=== PATIENT | male | born 1975 | race Caucasian/White ===

== ENCOUNTER 2018-06-10 10:01 | Inpatient (IN) | payer OTHER ==
[2018-06-10 10:22] VITALS: BMI 22.8
[2018-06-10] MEDS ORDERED: MENTHOL/PHENOL 1 EACH UD MM PRN (13:20)
[2018-06-10] MEDS ORDERED: BISMUTH SUBSALICYLATE 524 MG/30 ML UD PO PRN (13:20)
[2018-06-10] MEDS ORDERED: hydrOXYzine PAMOATE 25 MG CAPSULE (FP) PO PRN (13:20)
[2018-06-10] MEDS ORDERED: ACETAMINOPHEN 325 MG TABLET (FP) PO PRN (13:20)
[2018-06-10] MEDS ORDERED: MAGNESIUM CITRATE 300 ML BOTTLE PO PRN (13:20)
[2018-06-10] MEDS ORDERED: DICYCLOMINE HCL 10 MG CAPSULE PO PRN (13:20)
[2018-06-10] MEDS ORDERED: MAGNESIUM HYDROX 2400MG/30ML ORAL SUSPENSION 30 ML CUP PO PRN (13:20)
[2018-06-10] MEDS ORDERED: IBUPROFEN 400 MG TABLET (FP) PO PRN (13:20)
[2018-06-10] MEDS ORDERED: MAG HYDROX/AL HYDROX/SIMETH 30 ML UNIT-DOSE CUP PO PRN (13:20)
[2018-06-10] MEDS ORDERED: chlordiazePOXIDE HCL 25 MG CAPSULE PO PRN (13:22)
[2018-06-10] MEDS ORDERED: METHADONE HCL 10 MG TABLET PO ONE (13:23)
--- NOTE | 2018-06-10 13:25 | HP ---
COWS - Scale Resting Pulse: 0= AL 80 or Below Sweatin= Chills/Flushing Restless Observation: 1= Difficult to Sit Still Pupil Size: 2= Moderately Dilated Bone or Joint Aches: 2= Severe Diffuse Aches Runny Nose/ Eye Tearin= Nasal Congestion GI Upset > 30mins: 2= Nausea/Diarrhea Tremor Observation: 2= Slight Tremor Visible Yawning Observation: 0= None Anxiety or Irritability: 2=Irritable/Anxious Goose Flesh Skin: 0=Smooth Skin COWS Score: 13 CIWA Score Nausea/Vomitin Muscle Tremors: 2 Anxiety: 3 Agitation: 4-Moderately Restless Paroxysmal Sweats: 2 Orientation: 0-Oriented Tacttile Disturbances: 0-None Auditory Disturbances: 0-None Visual Disturbances: 0-None Headache: 2-Mild CIWA-Ar Total Score: 15 - Admission Criteria [facility]ASAS Guidelines: Admission for Medically Managed Detox: Requires at least one of the followin. CIWA greater than 12 2. Seizures within the past 24 hours 3. Delirium tremens within the past 24 hours 4. Hallucinations within the past 24 hours 5. Acute intervention needed for co occurring medical disorder 6. Acute intervention needed for co occurring psychiatric disorder 7. Severe withdrawal that cannot be handled at a lower level of care (continued vomiting, continued diarrhea, abnormal vital signs) requiring intravenous medication and/or fluids 8. Admission ROS [facility] Chief Complaint: PATIENT PRESENTS WT ETOH WITHDRAWAL SX AND COCAINE DEPENDENCE. Allergies/Adverse Reactions: Allergies Allergy/AdvReac Type Severity Reaction Status Date / Time fish derived Allergy Severe Swelling Verified 06/10/18 12:14 shellfish derived Allergy Severe Swelling Verified 06/10/18 12:14 No Known Drug Allergies Allergy Verified 06/10/18 12:14 Seafood Allergy Severe Swelling Uncoded 06/10/18 12:14 History of Present Illness: PATIENT IS KNOWN TO FACILITY DUE TO PREVIOUS ADMISSION WITH LAST ADMISSION BEING IN 2013. PATIENT STATES HAVING HX OF HEROIN AND COCAINE USE BUT WAS SOBER X 1 YEARS. PATIENT REPORTS RELAPSING ONE MONTH AGO. CURRENTLY IN MMTP AT [facility] AND RN DOSE VERIFICATION COMPLETED. JESSICA REGAN LPN REPORTS DAILY DOSE 140MG. LAST DOSED AT CLINIC 06/08/18 BUT PATIENT WAS GIVEN DAILY DOSE FOR SUNDAY. PATIENT STATES HE TOOK DOSE 06/09/18 BUT NOT TODAY. PATIENT PRESENTS TODAY FOR ETOH WITHDRAWAL SX. PATIENT DRINKS 1/2 PINT OF LIQUOR DAILY, LAST DRINK THIS MORNING. PATIENT ALSO INJECTS COCAINE BUT DENIES USING HEROIN/ BZO. UDS + MTD, BZO, NILA, OPI AND THC. PATIENT STATES HE INJECTS 100 DOLLARS OF COCAINE DAILY WITH LAST USE LAST NIGHT. +MARIJUANA USE. DENIES SEIZURES, OVERDOSE, DTS AND BLACKOUTS. PMH INCLUDES HEPATITIS C (UNTREATED) AND BIPOLAR DISORDER. DENIES SI/HI. Exam Limitations: No Limitations - Ebola screening Have you traveled outside of the country in the last 21 days: No Have you had contact with anyone from an Ebola affected area: No Have you been sick,other than usual withdrawal symptoms: No Do you have a fever: No Patient History - Patient Medical History Hx Anemia: No Hx Asthma: No Hx Chronic Obstructive Pulmonary Disease (COPD): No Hx Cancer: No Hx Cardiac Disorders: No Hx Congestive Heart Failure: No Hx Hypertension: No Hx Hypercholesterolemia: No Hx Pacemaker: No HX Cerebrovascular Accident: No Hx Seizures: No Hx Dementia: No Hx Diabetes: No Hx Gastrointestinal Disorders: No Hx Liver Disease: No Hx Genitourinary Disorders: No Hx Sexually Transmitted Disorders: No Hx Renal Disease (ESRD): No Hx Thyroid Disease: No Hx Human Immunodeficiency Virus (HIV): No Hx Hepatitis C: Yes (NOT TREATED) Hx Depression: Yes Hx Suicide Attempt: No Hx Bipolar Disorder: Yes Hx Schizophrenia: No - Patient Surgical History Past Surgical History: No - PPD History Previous Implant?: Yes Documented Results: Negative w/proof Implanted On Prior R Admission?: Yes Date: 11/04/13 PPD to be Administered?: Yes - Reproductive History Patient : No - Smoking Cessation Smoking history: Current every day smoker Have you smoked in the past 12 months: Yes Aproximately how many cigarettes per day: 20 Hx Chewing Tobacco Use: No Initiated information on smoking cessation: Yes 'Breaking Loose' booklet given: 06/10/18 - Substance & Tx. History Hx Alcohol Use: Yes Hx Substance Use: Yes Substance Use Type: Alcohol, Cocaine, Marijuana Hx Substance Use Treatment: Yes - Substances Abused Alcohol Route: Oral Frequency: Daily Amount used: 1/2 pint voka 10 cans of 12oz beers Age of first use: 16 Date of Last Use: 06/10/18 Cocaine Route: Injection Frequency: Daily Amount used: $200 Age of first use: 19 Date of Last Use: 06/10/18 Family Disease History - Family Disease History Family History: Denies Admission Physical Exam [facility] - Vital Signs Vital Signs: Vital Signs - 24 hr 06/10/18 10:14 Temperature 99.3 F Pulse Rate 86 Respiratory 18 Rate Blood Pressure 126/71 - Physical General Appearance: Yes: Appropriately Dressed, Alcohol on Breath, Thin, Irritable, Sweating, Anxious HEENTM: Yes: EOMI, Hearing grossly Normal, Normocephalic, Normal Voice, BLAZE, Pharynx Normal, Nasal Congestion Respiratory: Yes: Chest Non-Tender, Lungs Clear, Normal Breath Sounds, No Respiratory Distress, No Accessory Muscle Use Neck: Yes: No masses,lesions,Nodules, Supple, Trachea in good position Breast: Yes: Breast Exam Deferred Cardiology: Yes: Regular Rhythm, Regular Rate, S1, S2 Abdominal: Yes: Normal Bowel Sounds, Non Tender, Flat Genitourinary: Yes: Within Normal Limits Back: Yes: Normal Inspection, Muscle Spasm Musculoskeletal: Yes: Back pain, Muscle Pain Extremities: Yes: Normal Range of Motion, Non-Tender, Tremors Neurological: Yes: core maker helper II-XII NML intact, Fully Oriented, Alert, Motor Strength 5/5, Normal Mood/Affect, Normal Response Integumentary: Yes: Normal Color, Warm, Moist, Track [place] Lymphatic: Yes: Within Normal Limits - Diagnostic (1) Methadone maintenance therapy patient Current Visit: Yes Status: Chronic (2) Alcohol dependence with uncomplicated withdrawal Current Visit: Yes Status: Acute (3) Cannabis dependence Current Visit: No Status: Chronic (4) Bipolar 1 disorder Current Visit: No Status: Suspected (5) Cocaine dependence Current Visit: No Status: Chronic Qualifiers: Substance use status: uncomplicated Qualified Code(s): F14.20 - Cocaine dependence, uncomplicated Cleared for Admission [facility] - Detox or Rehab [facility] Level of Care: Medically Managed Detox Regimen/Protocol: Librium [facility] Breath Alcohol Content Breath Alcohol Content: 0.006 Urine Drug Screen - Results Drug Screen Negative: No Urine Drug Screen Results: THC-Marijuana, NILA-Cocaine, OPI-Opiates, BZO- Benzodiazepines, MTD-Methadone Inpatient Rehab Admission - Rehab Decision to Admit Inpatient rehab admission?: No
[2018-06-10] MEDS ORDERED: METHADONE HCL 10 MG TABLET ONE (13:40)
[2018-06-10] MEDS ORDERED: METHADONE HCL 40 MG DISPERSABLE TABLET ONE (13:40)
[2018-06-10] MEDS: METHADONE 120 MG, METHADONE 20 MG PO SCH (13:42)
[2018-06-10] MEDS: NICOTINE POLACRILEX 2 MG GUM BUC PRN (16:27)
[2018-06-10] MEDS: chlordiazePOXIDE HCL 25 MG CAPSULE PO SCH ×2 (17:33→22:02)
[2018-06-10] MEDS: MELATONIN 5 MG TABLETS PO PRN (22:03)
[2018-06-10] MEDS: THIAMINE HCL 100 MG TABLET (FP) PO SCH (22:03)
[2018-06-11] MEDS ORDERED: METHADONE HCL 40 MG DISPERSABLE TABLET ONE (04:10)
[2018-06-11] MEDS ORDERED: METHADONE HCL 10 MG TABLET ONE (04:10)
[2018-06-11 05:12] LABS: PH,URINE 5.5 (5.0-8.0); URINE APPEARANCE CLEAR; URINE BILIRUBIN NEGATIVE (NEGATIVE); URINE COLOR DK YELLOW; URINE GLUCOSE (UA) NEGATIVE (NEGATIVE); URINE KETONE TRACE (NEGATIVE); URINE LEUK ESTERASE NEGATIVE (NEGATIVE); URINE NITRITE NEGATIVE (NEGATIVE); URINE PROTEIN NEGATIVE (NEGATIVE)
[2018-06-11] MEDS: chlordiazePOXIDE HCL 25 MG CAPSULE PO SCH ×4 (05:40→22:07)
[2018-06-11] MEDS: METHADONE 120 MG, METHADONE 20 MG PO SCH (05:40)
[2018-06-11] MEDS ORDERED: METHADONE HCL 10 MG TABLET PO SCH (06:00)
[2018-06-11] MEDS: NICOTINE POLACRILEX 2 MG GUM BUC PRN ×2 (07:55→22:11)
--- NOTE | 2018-06-11 08:58 | CONSULT ---
[facility] Psychiatric Consult - Data Date of interview: 06/11/18 Admission source: [facility] Identifying data: Patient is a 42 year old single male, father of five, self employed ([employer]), but is currently homeless. This is one of multiple admissions for patient. Patient admitted to for alcohol and cocaine dependence. Substance Abuse History: Smoking Cessation. Smoking history: Current every day smoker. Have you smoked in the past 12 months: Yes. Aproximately how many cigarettes per day: 20. Hx Chewing Tobacco Use: No. Initiated information on smoking cessation: Yes. 'Breaking Loose' booklet given: 06/10/18. - Substance & Tx. History. Hx Alcohol Use: Yes. Hx Substance Use: Yes. Substance Use Type : Alcohol, Cocaine, Marijuana. Hx Substance Use Treatment: Yes. - Substances Abused. Alcohol. Route: Oral. Frequency: Daily. Amount used: 1/2 pint voka 10 cans of 12oz beers. Age of first use: 16. Date of Last Use: 06/10/18. Cocaine. Route: Injection. Frequency: Daily. Amount used: $200. Age of first use: 19. Date of Last Use: 06/10/18 Medical History: Hep C Psychiatric History: Patient reports h/o five psychiatric hospitalizations most recently two months ago at [facility] for suicidal ideation. He was discharged on depakote 500mg BID + seroquel 50mg BID. Self reports diagnosis of bipolar disorder. He is also known to [facility], [facility], and hospitals in [place]. Mr. Brewster reports h/o one suicide attempt by hanging self but states his child's mother cut the rope. He is currently provided psychiatric care and [facility] ([facility]. Reddy and is prescribed seroquel 50mg BID + Depakote 500mg BID. Mr. Brewster reports history of mood instability when off his medications. He last accepted psychtropic medications four days ago. At present, patient reports feeling fine. He denies thoughts or urges to hurt self or others. No manic or depressive symptoms noted. Physical/Sexual Abuse/Trauma History: denies. Mental Status Exam - Mental Status Exam Alert and Oriented to: Time, Place, Person Cognitive Function: Good Patient Appearance: Well Groomed Mood: Euthymic Affect: Mood Congruent Patient Behavior: Appropriate, Cooperative Speech Pattern: Appropriate Voice Loudness: Normal Thought Process: Intact, Goal Oriented Thought Disorder: Not Present Hallucinations: Denies Suicidal Ideation: Denies Homicidal Ideation: Denies Insight/Judgement: Poor Sleep: Poorly Appetite: Fair Muscle strength/Tone: Normal Gait/Station: Normal Psychiatric Findings - Problem List ([place] 1, 2,3) (1) Alcohol dependence with uncomplicated withdrawal Status: Acute (2) Methadone maintenance therapy patient Status: Chronic (3) Cannabis dependence Status: Chronic (4) Cocaine dependence Status: Chronic Qualifiers: Substance use status: uncomplicated Qualified Code(s): F14.20 - Cocaine dependence, uncomplicated (5) Bipolar disorder Status: Chronic - Initial Treatment Plan Initial Treatment Plan: Psychoeducation provided. Detoxification in progress. Will order Seroquel 50mg BID + Depakote 500mg BID. Valproic acid level ordered by ALIZA Darby. Benefits and side effects discussed. Verbal consent given.
--- NOTE | 2018-06-11 09:30 | EKG ---
Test Reason : Blood Pressure : / mmHG Vent. Rate : 080 BPM Atrial Rate : 080 BPM P-R Int : 134 ms QRS Dur : 104 ms QT Int : 396 ms P-R-T Axes : 063 072 068 degrees QTc Int : 456 ms NORMAL SINUS RHYTHM INCOMPLETE RIGHT BUNDLE BRANCH BLOCK BORDERLINE ECG NO PREVIOUS ECGS AVAILABLE Confirmed by WAN ALCANTAR, JAIME ([id number]) on 06/11/2018 9:29:36 AM Referred By: Confirmed By:JAIME BLAS MD
[2018-06-11] MEDS ORDERED: DIVALPROEX NA *ER* EXTEND REL 500 MG TABLET.SA (FP) PO SCH (10:00)
[2018-06-11] MEDS: DIVALPROEX SODIUM 500 MG TABLET E.C. PO SCH ×2 (10:19→22:08)
[2018-06-11] MEDS: NICOTINE 21 MG/24 HOURS TOPICAL PATCH TD SCH (10:19)
[2018-06-11] MEDS: PRENATAL VITAMINS W/ FOLIC ACID TABLET (FP) PO SCH (10:19)
[2018-06-11] MEDS: QUEtiapine FUMARATE 50 MG TABLET PO SCH ×2 (10:20→22:08)
[2018-06-11 12:16] LABS: HEMATOCRIT 36.3 % (35.4-49); HEMOGLOBIN 12.5 GM/dL (11.7-16.9); MCH 30.3 pg (25.7-33.7); MCHC 34.3 g/dl (32.0-35.9); MEAN CELL VOLUME 88.3 fl (80-96); MEAN PLT VOLUME 8.1 fl (7.5-11.1); PLATELET COUNT 314 K/MM3 (134-434); RBC 4.12 M/mm3 (4.00-5.60); RDW 14.6 % (11.9-15.9)
[2018-06-11 12:52] LABS: ALBUMIN 4.1 g/dl (3.4-5.0); ALK PHOS 115 U/L (45-117); ANION GAP 10 MMOL/L (8-16); BILIRUBIN,TOTAL 0.2 mg/dL (0.2-1); BLOOD UREA NITROGEN 18 mg/dL (7-18); CALCIUM 8.8 mg/dL (8.5-10.1); CHLORIDE 106 mmol/L (98-107); CO2 24 mmol/L (21-32); GLUCOSE,RANDOM 109 mg/dL (74-106); POTASSIUM 4.4 mmol/L (3.5-5.1); SGOT/AST 24 U/L (15-37); SGPT/ALT 130 U/L (13-61); SODIUM 141 mmol/L (136-145)
--- NOTE | 2018-06-11 13:52 | PN ---
[facility] CIWA - CIWA Score Nausea/Vomitin-Mild Nausea/No Vomiting Muscle Tremors: 3 Anxiety: 2 Agitation: 2 Paroxysmal Sweats: 1-Minimal Palms Moist Orientation: 1-Uncertain about Date Tacttile Disturbances: 0-None Auditory Disturbances: 0-None Visual Disturbances: 0-None Headache: 1-Very Mild CIWA-Ar Total Score: 11 [facility] Progress Note (SOAP) Subjective: doing ok today had methadone 140 mg social with peers in day room Objective: 06/11/18 13:56 Vital Signs Temperature 97.7 F 06/11/18 13:23 Pulse Rate 74 06/11/18 13:23 Respiratory Rate 18 06/11/18 13:23 Blood Pressure 102/57 L 06/11/18 13:23 O2 Sat by Pulse Oximetry (%) Laboratory Last Values WBC 9.0 K/mm3 (4.0-10.0) 06/11/18 06:00 RBC 4.12 M/mm3 (4.00-5.60) 06/11/18 06:00 Hgb 12.5 GM/dL (11.7-16.9) 06/11/18 06:00 Hct 36.3 % (35.4-49) 06/11/18 06:00 MCV 88.3 fl (80-96) 06/11/18 06:00 MCH 30.3 pg (25.7-33.7) 06/11/18 06:00 MCHC 34.3 g/dl (32.0-35.9) 06/11/18 06:00 RDW 14.6 % (11.9-15.9) 06/11/18 06:00 Plt Count 314 K/MM3 (134-434) 06/11/18 06:00 MPV 8.1 fl (7.5-11.1) D 06/11/18 06:00 Sodium 141 mmol/L (136-145) 06/11/18 06:00 Potassium 4.4 mmol/L (3.5-5.1) 06/11/18 06:00 Chloride 106 mmol/L (98-107) 06/11/18 06:00 Carbon Dioxide 24 mmol/L (21-32) 06/11/18 06:00 Anion Gap 10 MMOL/L (8-16) 06/11/18 06:00 BUN 18 mg/dL (7-18) 06/11/18 06:00 Creatinine 1.0 mg/dL (0.55-1.3) 06/11/18 06:00 Creat Clearance w eGFR 82.76 (>60) 06/11/18 06:00 Random Glucose 109 mg/dL (74-106) H 06/11/18 06:00 Calcium 8.8 mg/dL (8.5-10.1) 06/11/18 06:00 Total Bilirubin 0.2 mg/dL (0.2-1) 06/11/18 06:00 AST 24 U/L (15-37) 06/11/18 06:00 ALT 130 U/L (13-61) H 06/11/18 06:00 Alkaline Phosphatase 115 U/L (45-117) 06/11/18 06:00 Total Protein 8.0 g/dl (6.4-8.2) 06/11/18 06:00 Albumin 4.1 g/dl (3.4-5.0) 06/11/18 06:00 Urine Color Dk yellow 06/11/18 00:05 Urine Appearance Clear 06/11/18 00:05 Urine pH 5.5 (5.0-8.0) 06/11/18 00:05 Ur Specific [place] 1.029 (1.010-1.035) 06/11/18 00:05 Urine Protein Negative (NEGATIVE) 06/11/18 00:05 Urine Glucose (UA) Negative (NEGATIVE) 06/11/18 00:05 Urine Ketones Trace (NEGATIVE) H 06/11/18 00:05 Urine Blood Negative (NEGATIVE) 06/11/18 00:05 Urine Nitrite Negative (NEGATIVE) 06/11/18 00:05 Urine Bilirubin Negative (NEGATIVE) 06/11/18 00:05 Urine Urobilinogen 1.0 mg/dL (0.2-1.0) 06/11/18 00:05 Ur Leukocyte Esterase Negative (NEGATIVE) 06/11/18 00:05 Valproic Acid 3.1 ug/ml (50-100) L 06/11/18 06:00 RPR Titer Nonreactive (NONREACTIVE) 06/11/18 06:00 HIV 1&2 Antibody Screen Negative 06/11/18 06:00 HIV P24 Antigen Negative 06/11/18 06:00 lab noted Assessment: 06/11/18 13:57 withdrawal sx Plan: continue detox
[2018-06-11] MEDS: THIAMINE HCL 100 MG TABLET (FP) PO SCH (22:08)
[2018-06-11] MEDS: MELATONIN 5 MG TABLETS PO PRN (22:08)
[2018-06-12] MEDS ORDERED: METHADONE HCL 10 MG TABLET ONE (04:10)
[2018-06-12] MEDS ORDERED: METHADONE HCL 40 MG DISPERSABLE TABLET ONE (04:11)
[2018-06-12] MEDS: METHADONE 120 MG, METHADONE 20 MG PO SCH (05:13)
[2018-06-12] MEDS: chlordiazePOXIDE HCL 25 MG CAPSULE PO SCH ×2 (05:13→10:04)
[2018-06-12] MEDS: NICOTINE POLACRILEX 2 MG GUM BUC PRN ×3 (06:30→18:15)
[2018-06-12] MEDS: QUEtiapine FUMARATE 50 MG TABLET PO SCH ×2 (09:29→22:13)
[2018-06-12] MEDS: PRENATAL VITAMINS W/ FOLIC ACID TABLET (FP) PO SCH (09:29)
[2018-06-12] MEDS: DIVALPROEX SODIUM 500 MG TABLET E.C. PO SCH ×2 (09:29→22:13)
[2018-06-12] MEDS: NICOTINE 21 MG/24 HOURS TOPICAL PATCH TD SCH (09:30)
--- NOTE | 2018-06-12 13:32 | PN ---
S CIWA - CIWA Score Nausea/Vomitin-No Nausea/No Vomiting Muscle Tremors: 1-None Visible, but [place] Anxiety: 1-Mildly Anxious Agitation: 1-Slight > Activity Paroxysmal Sweats: No Perspiration Orientation: 1-Uncertain about Date Tacttile Disturbances: 0-None Auditory Disturbances: 0-None Visual Disturbances: 0-None Headache: 1-Very Mild CIWA-Ar Total Score: 5 [facility] Progress Note (SOAP) Subjective: feeling better today sleep better at night less tremor social with peers in day room discuss aftercare with staff Objective: 06/12/18 13:32 Vital Signs Temperature 97.6 F 06/12/18 09:23 Pulse Rate 85 06/12/18 09:23 Respiratory Rate 18 06/12/18 09:23 Blood Pressure 120/69 06/12/18 09:23 O2 Sat by Pulse Oximetry (%) Laboratory Last Values WBC 9.0 K/mm3 (4.0-10.0) 06/11/18 06:00 RBC 4.12 M/mm3 (4.00-5.60) 06/11/18 06:00 Hgb 12.5 GM/dL (11.7-16.9) 06/11/18 06:00 Hct 36.3 % (35.4-49) 06/11/18 06:00 MCV 88.3 fl (80-96) 06/11/18 06:00 MCH 30.3 pg (25.7-33.7) 06/11/18 06:00 MCHC 34.3 g/dl (32.0-35.9) 06/11/18 06:00 RDW 14.6 % (11.9-15.9) 06/11/18 06:00 Plt Count 314 K/MM3 (134-434) 06/11/18 06:00 MPV 8.1 fl (7.5-11.1) D 06/11/18 06:00 Sodium 141 mmol/L (136-145) 06/11/18 06:00 Potassium 4.4 mmol/L (3.5-5.1) 06/11/18 06:00 Chloride 106 mmol/L (98-107) 06/11/18 06:00 Carbon Dioxide 24 mmol/L (21-32) 06/11/18 06:00 Anion Gap 10 MMOL/L (8-16) 06/11/18 06:00 BUN 18 mg/dL (7-18) 06/11/18 06:00 Creatinine 1.0 mg/dL (0.55-1.3) 06/11/18 06:00 Creat Clearance w eGFR 82.76 (>60) 06/11/18 06:00 Random Glucose 109 mg/dL (74-106) H 06/11/18 06:00 Calcium 8.8 mg/dL (8.5-10.1) 06/11/18 06:00 Total Bilirubin 0.2 mg/dL (0.2-1) 06/11/18 06:00 AST 24 U/L (15-37) 06/11/18 06:00 ALT 130 U/L (13-61) H 06/11/18 06:00 Alkaline Phosphatase 115 U/L (45-117) 06/11/18 06:00 Total Protein 8.0 g/dl (6.4-8.2) 06/11/18 06:00 Albumin 4.1 g/dl (3.4-5.0) 06/11/18 06:00 Urine Color Dk yellow 06/11/18 00:05 Urine Appearance Clear 06/11/18 00:05 Urine pH 5.5 (5.0-8.0) 06/11/18 00:05 Ur Specific [place] 1.029 (1.010-1.035) 06/11/18 00:05 Urine Protein Negative (NEGATIVE) 06/11/18 00:05 Urine Glucose (UA) Negative (NEGATIVE) 06/11/18 00:05 Urine Ketones Trace (NEGATIVE) H 06/11/18 00:05 Urine Blood Negative (NEGATIVE) 06/11/18 00:05 Urine Nitrite Negative (NEGATIVE) 06/11/18 00:05 Urine Bilirubin Negative (NEGATIVE) 06/11/18 00:05 Urine Urobilinogen 1.0 mg/dL (0.2-1.0) 06/11/18 00:05 Ur Leukocyte Esterase Negative (NEGATIVE) 06/11/18 00:05 Valproic Acid 3.1 ug/ml (50-100) L 06/11/18 06:00 RPR Titer Nonreactive (NONREACTIVE) 06/11/18 06:00 HIV 1&2 Antibody Screen Negative 06/11/18 06:00 HIV P24 Antigen Negative 06/11/18 06:00 lab noted Assessment: 06/12/18 13:33 mild alcohol withdrawal sx Plan: continue detox
[2018-06-12] MEDS ORDERED: chlordiazePOXIDE HCL 10 MG CAPSULE PO PRN (17:00)
[2018-06-12] MEDS: chlordiazePOXIDE HCL 10 MG CAPSULE PO SCH ×2 (18:13→22:13)
[2018-06-12] MEDS: THIAMINE HCL 100 MG TABLET (FP) PO SCH (22:13)
[2018-06-13] MEDS ORDERED: METHADONE HCL 10 MG TABLET ONE (04:30)
[2018-06-13] MEDS ORDERED: METHADONE HCL 40 MG DISPERSABLE TABLET ONE (04:30)
[2018-06-13] MEDS: chlordiazePOXIDE HCL 10 MG CAPSULE PO SCH (05:01)
[2018-06-13] MEDS: METHADONE 120 MG, METHADONE 20 MG PO SCH (05:01)
[2018-06-13] MEDS: NICOTINE POLACRILEX 2 MG GUM BUC PRN ×2 (06:17→10:13)
[2018-06-13 06:53] VITALS: TEMP 97.7
[2018-06-13 09:15] VITALS: BP 124/72; PULSE 88
[2018-06-13] MEDS: DIVALPROEX SODIUM 500 MG TABLET E.C. PO SCH (10:13)
[2018-06-13] MEDS: QUEtiapine FUMARATE 50 MG TABLET PO SCH (10:13)
--- NOTE | 2018-06-13 12:16 | DS ---
[facility] Detox Discharge Summary Admission Date: 06/10/18 Discharge Date: 06/13/18 - History Present History: Alcohol Dependence Additional Comments: 42 years old male admitted on 06/10/18 for alcohol withdrawal stabilization completed detox regimen [facility] - Physical Exam Results Vital Signs: Vital Signs Temperature 97.7 F 06/13/18 09:14 Pulse Rate 88 06/13/18 09:14 Respiratory Rate 18 06/13/18 09:14 Blood Pressure 124/72 06/13/18 09:14 O2 Sat by Pulse Oximetry (%) Pertinent Admission Physical Exam Findings: alcohol withdrawal sx Laboratory Last Values WBC 9.0 K/mm3 (4.0-10.0) 06/11/18 06:00 RBC 4.12 M/mm3 (4.00-5.60) 06/11/18 06:00 Hgb 12.5 GM/dL (11.7-16.9) 06/11/18 06:00 Hct 36.3 % (35.4-49) 06/11/18 06:00 MCV 88.3 fl (80-96) 06/11/18 06:00 MCH 30.3 pg (25.7-33.7) 06/11/18 06:00 MCHC 34.3 g/dl (32.0-35.9) 06/11/18 06:00 RDW 14.6 % (11.9-15.9) 06/11/18 06:00 Plt Count 314 K/MM3 (134-434) 06/11/18 06:00 MPV 8.1 fl (7.5-11.1) D 06/11/18 06:00 Sodium 141 mmol/L (136-145) 06/11/18 06:00 Potassium 4.4 mmol/L (3.5-5.1) 06/11/18 06:00 Chloride 106 mmol/L (98-107) 06/11/18 06:00 Carbon Dioxide 24 mmol/L (21-32) 06/11/18 06:00 Anion Gap 10 MMOL/L (8-16) 06/11/18 06:00 BUN 18 mg/dL (7-18) 06/11/18 06:00 Creatinine 1.0 mg/dL (0.55-1.3) 06/11/18 06:00 Creat Clearance w eGFR 82.76 (>60) 06/11/18 06:00 Random Glucose 109 mg/dL (74-106) H 06/11/18 06:00 Calcium 8.8 mg/dL (8.5-10.1) 06/11/18 06:00 Total Bilirubin 0.2 mg/dL (0.2-1) 06/11/18 06:00 AST 24 U/L (15-37) 06/11/18 06:00 ALT 130 U/L (13-61) H 06/11/18 06:00 Alkaline Phosphatase 115 U/L (45-117) 06/11/18 06:00 Total Protein 8.0 g/dl (6.4-8.2) 06/11/18 06:00 Albumin 4.1 g/dl (3.4-5.0) 06/11/18 06:00 Urine Color Dk yellow 06/11/18 00:05 Urine Appearance Clear 06/11/18 00:05 Urine pH 5.5 (5.0-8.0) 06/11/18 00:05 Ur Specific [place] 1.029 (1.010-1.035) 06/11/18 00:05 Urine Protein Negative (NEGATIVE) 06/11/18 00:05 Urine Glucose (UA) Negative (NEGATIVE) 06/11/18 00:05 Urine Ketones Trace (NEGATIVE) H 06/11/18 00:05 Urine Blood Negative (NEGATIVE) 06/11/18 00:05 Urine Nitrite Negative (NEGATIVE) 06/11/18 00:05 Urine Bilirubin Negative (NEGATIVE) 06/11/18 00:05 Urine Urobilinogen 1.0 mg/dL (0.2-1.0) 06/11/18 00:05 Ur Leukocyte Esterase Negative (NEGATIVE) 06/11/18 00:05 Valproic Acid 3.1 ug/ml (50-100) L 06/11/18 06:00 RPR Titer Nonreactive (NONREACTIVE) 06/11/18 06:00 HIV 1&2 Antibody Screen Negative 06/11/18 06:00 HIV P24 Antigen Negative 06/11/18 06:00 lab noted patient preferring return to methadone program for medical and mental issues - Treatment Hospital Course: Detox Protocol Followed, Detoxed Safely, Responded well, Discharged Condition Good, Rehab Referral Accepted Patient has Accepted a Re[facility] Referral to: [facility] - Medication Discharge Medications: Ambulatory Orders Quetiapine Fumarate [Seroquel -] 50 mg PO BID #60 tablet 12/25/13 Divalproex *ER* [Depakote *ER* -] 500 mg PO BID 06/10/18 Divalproex Sodium [Depakote] 500 mg PO BID 06/11/18 - Diagnosis (1) Alcohol dependence with uncomplicated withdrawal Status: Acute (2) Hepatitis C Status: Chronic Qualifiers: Viral hepatitis chronicity: carrier Qualified Code(s): B18.2 - Chronic viral hepatitis C (3) Bipolar 1 disorder Status: Suspected - AMA Did Patient Leave Against Medical Advice: No
[2018-06-13] MEDS ORDERED: chlordiazePOXIDE HCL 10 MG CAPSULE PO SCH (17:00)
== END 2018-06-13 10:55 | disposition home or self-care (01) | DRG 773 ==
LOC: YASAS 10:01 → Y3N 13:09
PROVIDERS: ADMIT Surgery; ATTEND Surgery
PROC: HZ2ZZZZ Detoxification Services for Substance Abuse Treatment (ICD-10-PCS; principal; 2018-06-10)
DX: F10.230 Alcohol dependence with withdrawal, uncomplicated (principal); F11.20 Opioid dependence, uncomplicated; F14.20 Cocaine dependence, uncomplicated; F12.20 Cannabis dependence, uncomplicated; F17.210 Nicotine dependence, cigarettes, uncomplicated; F31.89 Other bipolar disorder; B18.2 Chronic viral hepatitis C; Z91.013 Allergy to seafood
CPT/HCPCS: 36415; 80053; 80164; 81003; 85027; 86593; 87389; 93005; 93010